=== PATIENT | male | born 1965 | race Caucasian/White ===

== ENCOUNTER 2016-04-04 04:47 | Emergency (ER) | payer MEDICARE, MEDICAID ==
[2016-04-04 04:56] VITALS: BP 167/93
[2016-04-04] MEDS ORDERED: Pseudoephedrine TAB* 60 MG PO ONE (05:27)
--- NOTE | 2016-04-04 06:29 | ED ---
Aung Richardson Billy scribed for Ryan Bruno MD on 04/04/16 at 0524 . Complex/Multi-Sys Presentation - HPI Summary HPI Summary: Patient is a 51 year-old male coming to [facility] presenting with 1 month of constant sinus discomfort. He describes burning sinus pain, throbbing headache, sore throat, tinnitus, ear ache and green nasal discharge. He has taken OTC decongestants with no improvement. He has also been treated with 2x different courses of antibiotics. He has a follow up appointment with his ENT in 5 days. - History Of Current Complaint Chief Complaint: EDUpperRespComplaint Time Seen by Provider: 04/04/16 05:16 Hx Obtained From: Patient Onset/Duration: Gradual Onset, Lasting Weeks, Still Present Timing: Constant Severity Currently: Moderate Severity Initially: Moderate Location: Pain At: Aggravating Factor(s): none Alleviating Factor(s): none Associated Signs And Symptoms: Positive: Other - sinus pain, throbbing headache , sore throat, tinnitus, ear ache and green nasal discharge - Allergies/Home Medications Allergies/Adverse Reactions: Allergies Allergy/AdvReac Type Severity Reaction Status Date / Time No Known Allergies Allergy Verified 04/03/16 09:27 PMH/Surg Hx/FS Hx/Imm Hx Endocrine/Hematology History: Denies: Hx Diabetes Cardiovascular History: Denies: Hx Hypertension, Hx Pacemaker/ICD History: Denies: Hx Renal Disease Sensory History: Denies: Hx Hearing Aid Psychiatric History: Denies: Hx Panic Disorder - Surgical History Surgery Procedure, Year, and Place: R THUMB FUSION,DEVIATED SEPTUM,SINUS [facility], SURGERY FOR TORN RETINA - Immunization History Date of Tetanus Vaccine: 09/02/12 Infectious Disease History: No Infectious Disease History: Denies: Traveled Outside the [place] in Last 30 Days - Family History Known Family History: Positive: Cardiac Disease, Diabetes - Social History Alcohol Use: pt unwilling/unable to speak Substance Use Type: Reports: None Smoking Status (MU): Unknown if Ever Smoked Review of Systems Positive: Sore Throat, Ear Ache, Nasal Discharge, Other - sinus pain, tinnitus Positive: Headache All Other Systems Reviewed And Are Negative: Yes Physical Exam Triage Information Reviewed: Yes Vital Signs On Initial Exam: Initial Vitals Temp Pulse Resp BP Pulse Ox 95.5 F 71 18 167/93 100 04/04/16 04:51 04/04/16 04:51 04/04/16 04:51 04/04/16 04:51 04/04/16 04:51 Vital Signs Reviewed: Yes Appearance: Positive: Well-Appearing, No Pain Distress Skin: Positive: Warm Head/Face: Positive: Normal Head/Face Inspection Eyes: Positive: EOMI, ALEXIA ENT: Positive: Pharynx normal, Nasal congestion, TMs normal Neck: Positive: Supple Respiratory/Lung Sounds: Positive: Clear to Auscultation, Breath Sounds Present Cardiovascular: Positive: RRR Abdomen Description: Positive: Nontender, Soft Musculoskeletal: Positive: Strength/ROM Intact Neurological: Positive: Sensory/Motor Intact, Alert, Oriented to Person Place, Time Diagnostics - Vital Signs Vital Signs Temp Pulse Resp BP Pulse Ox 04/04/16 04:51 95.5 F 71 18 167/93 100 - Laboratory Lab Results: Lab Results 04/04/16 Range/Units 06:11 Influenza A (Rapid) Negative (Negative) Influenza B (Rapid) Negative (Negative) Lab Statement: Any lab studies that have been ordered have been reviewed, and results considered in the medical decision making process. Re-Evaluation - Re-Evaluation First Eval Re-Evaluation Time: 06:00 - results d/w pt Change: Improved Complex Multi-Symp Course/Dx - Diagnoses Provider Diagnoses: Sinusitis Discharge - Discharge Plan Condition: Stable Disposition: HOME Prescriptions: Pseudoephedrine TAB* [Sudafed TAB*] 60 mg PO BID #10 tab Patient Education Materials: Sinusitis (ED) Referrals: Nam Canchola MD [Primary Care Provider] - Additional Instructions: FOLLOW UP WITH YOUR EAR, NOSE, AND THROAT SPECIALIST SCHEDULED. The documentation as recorded by the Aung alejandro Billy accurately reflects the service I personally performed and the decisions made by , Ryan Bruno MD.
== END 2016-04-04 06:38 | disposition home or self-care (01) ==
LOC: ED 04:47
DX: J32.0 Chronic maxillary sinusitis (principal); J02.9 Acute pharyngitis, unspecified; H92.09 Otalgia, unspecified ear
CPT/HCPCS: 70553; 87502; 99282; A9270-GY; A9579

== ENCOUNTER 2016-11-17 15:28 | Emergency (ER) | payer MEDICARE, MEDICAID ==
[2016-11-17] MEDS ORDERED: oxyCODONE/Acetamin 5/325 MG* TAB PO ONE (17:37)
[2016-11-17 18:43] VITALS: BP 182/88
== END 2016-11-17 18:47 | disposition left against medical advice (07) ==
LOC: ED 15:28
DX: R10.9 Unspecified abdominal pain (principal); Z53.21 Procedure and treatment not carried out due to patient leaving prior to being seen by health care provider
CPT/HCPCS: 93005; 99282; A9270-GY

== ENCOUNTER 2017-04-19 12:06 | Emergency (ER) | payer MEDICARE, MEDICAID ==
--- NOTE | 2017-04-19 13:24 | RAD ---
HISTORY: Cough COMPARISONS: December 06, 2013 VIEWS: 4: Frontal dual-energy and lateral views of the chest. FINDINGS: CARDIOMEDIASTINAL SILHOUETTE: The cardiomediastinal silhouette is normal. BRANDON: The brandon are normal. PLEURA: The costophrenic angles are sharp. No pleural abnormalities are noted. LUNG PARENCHYMA: There is hyperinflation with flattening of the diaphragm and expansion of the AP diameter of the chest. ABDOMEN: The upper abdomen is clear. There is no subphrenic gas. BONES AND SOFT TISSUES: Mild degenerative changes are noted OTHER: None. IMPRESSION: HYPERINFLATION. NO ACTIVE CARDIOPULMONARY DISEASE.
--- NOTE | 2017-04-19 13:49 | ED ---
Influenza-Like Illness - History of Current Complaint Chief Complaint: EDFluSymptoms Time Seen by Provider: 04/19/17 12:55 - Allergy/Home Medications Allergies/Adverse Reactions: Allergies Allergy/AdvReac Type Severity Reaction Status Date / Time No Known Allergies Allergy Verified 04/11/17 10:39 PMH/Surg Hx/FS Hx/Imm Hx Endocrine/Hematology History: Denies: Hx Diabetes Cardiovascular History: Denies: Hx Hypertension, Hx Pacemaker/ICD GI History: Reports: Hx Gastroesophageal Reflux Disease, Hx Hiatal Hernia, Other GI Disorders - NARROW ESOPHAGUS AND INFLAMMATION History: Reports: Other Problems/Disorders - ED Denies: Hx Renal Disease Musculoskeletal History: Reports: Hx Arthritis, Hx Back Problems, Hx Gout, Hx Orthopedic Injury Sensory History: Reports: Hx Contacts or Glasses, Hx Hearing Problem Denies: Hx Hearing Aid Opthamlomology History: Reports: Hx Contacts or Glasses Neurological History: Reports: Hx Headaches, Other Neuro Impairments/Disorders - 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 Psychiatric History: Denies: Hx Panic Disorder - Cancer History Hx Chemotherapy: No - Surgical History Surgery Procedure, Year, and Place: R THUMB FUSION,DEVIATED SEPTUM,SINUS C[facility], SURGERY FOR TORN RETINA (done with laser) Hx Anesthesia Reactions: Yes - waking up too soon from anethesia - Immunization History Date of Tetanus Vaccine: 09/02/12 Infectious Disease History: No Infectious Disease History: Denies: Traveled Outside the [place] in Last 30 Days - Family History Known Family History: Positive: Cardiac Disease, Diabetes - Social History Alcohol Use: Weekly Alcohol Amount: 6-9 beers per week Hx Substance Use: No Substance Use Type: Reports: None Hx Tobacco Use: Yes Smoking Status (MU): Former Smoker Physical Exam Vital Signs On Initial Exam: Initial Vitals Temp Pulse Resp BP Pulse Ox 97.7 F 82 16 168/100 98 04/19/17 12:17 04/19/17 12:17 04/19/17 12:17 04/19/17 12:17 04/19/17 12:17 Diagnostics - Vital Signs Vital Signs Temp Pulse Resp BP Pulse Ox 04/19/17 12:17 97.7 F 82 16 168/100 98 - Laboratory Lab Results: Lab Results 04/19/17 Range/Units 12:29 Influenza A (Rapid) Negative (Negative) Influenza B (Rapid) Negative (Negative) Lab Statement: Any lab studies that have been ordered have been reviewed, and results considered in the medical decision making process. - Radiology chest Xray Interpretation: No Acute Changes - HYPERINFLATION. NO ACTIVE CARDIOPULMONARY DISEASE. Radiology Interpretation Completed By: Radiologist Discharge - Discharge Plan Referrals: Nam Canchola MD [Primary Care Provider] -
[2017-04-19] MEDS ORDERED: Al Hydrox/Mg Hydrox/Simet LIQ* 30 ML UDC PO ONE (14:01)
[2017-04-19] MEDS ORDERED: Lidocaine 2% VISCOUS* 15 ML UDC PO ONE (14:01)
--- NOTE | 2017-04-19 14:04 | ED ---
Throat Pain/Nasal Congestion - HPI Summary HPI Summary: 52 male presents to ED with complaints of sinus and head congestion that has seemed to move into his chest that has been ongoing for the past 3 days and worsened. Also complaints of body aches. States he was visiting his brother who was ill with sinusitis. States he think he got it and states he gets chronic sinus infections. Has been taking dayquil/mucinex without relief. Admits to post nasal drip. States his throat has started to get sore from it and his acid reflux has also been acting up. Denies fever. Admits to headache and states when he bends over his head feels like it is going to explode. Has been having a lot of green mucus/drainage with coughing and nasal drainage. No other complaints. No PMHx. No chest pain or trouble breathing. Was concerned for flu/ pneumonia. Has increased amounts of stress. - History of Current Complaint Chief Complaint: EDFluSymptoms Time Seen by Provider: 04/19/17 12:55 Hx Obtained From: Patient Onset/Duration: Sudden Onset, Lasting Days, Still Present, Worse Since Severity: Moderate Associated Signs And Symptoms: Positive: Dysphagia, Sinus Discomfort, Nasal Discharge Cough: Productive - Epiglottits Risk Factors Epiglottis Risk Factors: Negative - Allergies/Home Medications Allergies/Adverse Reactions: Allergies Allergy/AdvReac Type Severity Reaction Status Date / Time No Known Allergies Allergy Verified 04/11/17 10:39 PMH/Surg Hx/FS Hx/Imm Hx Endocrine/Hematology History: Denies: Hx Diabetes Cardiovascular History: Denies: Hx Hypertension, Hx Pacemaker/ICD Respiratory History: Denies: Hx Asthma GI History: Reports: Hx Gastroesophageal Reflux Disease, Hx Hiatal Hernia, Other GI Disorders - NARROW ESOPHAGUS AND INFLAMMATION History: Reports: Other Problems/Disorders - ED Denies: Hx Renal Disease Musculoskeletal History: Reports: Hx Arthritis, Hx Back Problems, Hx Gout, Hx Orthopedic Injury Sensory History: Reports: Hx Contacts or Glasses, Hx Hearing Problem Denies: Hx Hearing Aid Opthamlomology History: Reports: Hx Contacts or Glasses Neurological History: Reports: Hx Headaches, Other Neuro Impairments/Disorders - 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 Psychiatric History: Denies: Hx Panic Disorder - Cancer History Hx Chemotherapy: No - Surgical History Surgery Procedure, Year, and Place: R THUMB FUSION,DEVIATED SEPTUM,SINUS CMC, SURGERY FOR TORN RETINA (done with laser) Hx Anesthesia Reactions: Yes - waking up too soon from anethesia - Immunization History Date of Tetanus Vaccine: 09/02/12 Immunizations Up to Date: Yes Infectious Disease History: No Infectious Disease History: Denies: Traveled Outside the [place] in Last 30 Days - Family History Known Family History: Positive: Cardiac Disease, Diabetes - Social History Alcohol Use: Weekly Alcohol Amount: 6-9 beers per week Hx Substance Use: No Substance Use Type: Reports: None Hx Tobacco Use: Yes Smoking Status (MU): Former Smoker Review of Systems Constitutional: Negative Positive: Sore Throat, Ear Ache, Nasal Discharge Cardiovascular: Negative Positive: Cough Positive: Nausea, Other - "acid reflux" Skin: Negative Positive: Headache All Other Systems Reviewed And Are Negative: Yes Physical Exam Triage Information Reviewed: Yes Vital Signs On Initial Exam: Initial Vitals Temp Pulse Resp BP Pulse Ox 97.7 F 82 16 168/100 98 04/19/17 12:17 04/19/17 12:17 04/19/17 12:17 04/19/17 12:17 04/19/17 12:17 Vital Signs Reviewed: Yes Appearance: Positive: No Pain Distress, Well-Nourished, Ill-Appearing - sounds congested and looks drained Skin: Positive: Warm, Skin Color Reflects Adequate Perfusion, Dry, Cold. Negative: Numb, Tender, Soft, Erythema @ Head/Face: Positive: Normal Head/Face Inspection Eyes: Positive: Conjunctiva Clear ENT: Positive: Hearing grossly normal, Pharyngeal erythema - post nasal drip noted, Nasal congestion, Nasal drainage, TMs normal - serous effusion BL, Sinus tenderness, Uvula midline. Negative: Tonsillar swelling, Tonsillar exudate Dental: Positive: Percussion Tenderness @ - maxillary/frontal. Negative: Cervical Lymphadenopathy Neck: Positive: Supple, Nontender Respiratory/Lung Sounds: Positive: Clear to Auscultation, Breath Sounds Present. Negative: Rales, Rhonchi, Wheezes Cardiovascular: Positive: Normal, RRR, Pulses are Symmetrical in both Upper and Lower Extremities. Negative: Murmur, Rub Abdomen Description: Positive: Nontender, Soft Musculoskeletal: Positive: Normal Neurological: Positive: Normal, Sensory/Motor Intact, Alert, Oriented to Person Place, Time Diagnostics - Vital Signs Vital Signs Temp Pulse Resp BP Pulse Ox 04/19/17 12:17 97.7 F 82 16 168/100 98 - Laboratory Lab Results: Lab Results 04/19/17 Range/Units 12:29 Influenza A (Rapid) Negative (Negative) Influenza B (Rapid) Negative (Negative) Lab Statement: Any lab studies that have been ordered have been reviewed, and results considered in the medical decision making process. EENT Course/Dx - Course Course Of Treatment: chest xray and influenza swab obtained and negative, obtained due to patient request. educated on viral versus bacterial infection. appears to be suffering from URI/sinusitis. symptomatic measures. given GI cocktail due to patient having GERD flare "burning in chest". aware of worsening signs symptoms. no other concerns. normal vitals, BP improved on recheck. increase fluids, rest. follow up. - Differential Diagnoses Differential Diagnoses: Sinusitis, URI/Bronchitis, Other - GERD - Diagnoses Provider Diagnoses: Sinusitis, GERD (gastroesophageal reflux disease) Discharge - Discharge Plan Condition: Stable Disposition: HOME Prescriptions: Amoxicillin/Clavulanate TAB* [Augmentin TAB 875*] 875 mg PO BID #19 tab Fluticasone NASAL SPRAY 50MCG* [Flonase NASAL SPRAY 50MCG*] 2 spray BOTH NARES DAILY #1 btl Patient Education Materials: Sinusitis (ED), Warm Compress or Soak (ED) Referrals: Nma Canchola MD [Primary Care Provider] - Additional Instructions: Take medication as prescribed. Take entire antibiotic until entire dose is finished even if symptoms improve. Hot showers, warm compresses, saline rinses, vicks/humidified air for symptoms. Be sure to take omeprazole as prescribed for the next week strictly due to symptoms. Increase fluid intake. Rest. Ibuprofen for headache/inflammation. Extra pillow at bedtime. Follow up with PCP. Any new or worsening symptoms please seek medical attention promptly.
[2017-04-19 14:33] VITALS: BP 150/88
== END 2017-04-19 14:27 | disposition home or self-care (01) ==
LOC: ED 12:06
DX: J32.9 Chronic sinusitis, unspecified (principal); K21.9 Gastro-esophageal reflux disease without esophagitis; Z87.891 Personal history of nicotine dependence
CPT/HCPCS: 71046; 87502; 99282; A9270-GY

== ENCOUNTER 2017-05-05 10:54 | Day surgery (SDC) | payer MEDICARE, MEDICAID ==
--- NOTE | 2017-02-13 04:09 | HP ---
PREOPERATIVE HISTORY AND PHYSICAL: DATE OF OFFICE VISIT: 02/11/17 DATE OF SURGERY: 02/24/17 ATTENDING SURGEON: Dr. Hebert Perez. * (DICTATED BY JANET ARMANDO) PROCEDURE: Left shoulder arthroscopy with rotator cuff repair, possible subpectoral biceps tenodesis. CHIEF COMPLAINT: Left shoulder pain. HISTORY OF PRESENT ILLNESS: Sean is a 51-year-old male who is here for followup for his left shoulder pain due to a partial thickness rotator cuff tendon rupture. He was last seen in September and was scheduled for surgery on , but cancelled due to some family issues. He has had significant pain. He is a chronic pain patient as well as having gout and fibromyalgia. He has had numbness and tingling in the past. He has tried injections which did helped for sometime, but wore off. He was unable to work. He has complaints of weakness and inability to lift. He cannot sleep. He takes the oxycodone 3 times a day with nabumetone. He has tried physical therapy and he has been taking anti-inflammatories [id number]. He has failed conservative treatments and wishes to proceed with surgery. PAST MEDICAL HISTORY: Significant for gout, arthritis, fibromyalgia, anxiety, cervicalgia, and myalgia. PAST SURGICAL HISTORY: Significant for thumb fusion and deviated septum, sinus surgery, esophagus surgery. CURRENT MEDICATIONS: 1. Omeprazole. 2. Benadryl. 3. Tramadol. 4. Prednisone. 5. Voltaren. 6. Allopurinol. 7. Colchicine. 8. Percocet. 9. Nabumetone. ALLERGIES: No known drug allergies. FAMILY HISTORY: Significant for diabetes, heart disease, high blood pressure, and stroke. SOCIAL HISTORY: He lives with his significant other. He is self-employed. He is a former smoker. He reports occasional alcohol consumption and he is left hand dominant. REVIEW OF SYSTEMS: A 14-point review of systems is reviewed with the patient. Significant for chronic back and neck pain, weakness, fatigue, seasonal allergies, depression, anxiety, and as well as above complaint. Otherwise, remainder of systems are negative and noncontributory. PHYSICAL EXAMINATION GENERAL: Well-developed, well-nourished 51-year-old male, in no acute distress. Alert and oriented x3. Appropriate mood and affect HEENT: Head is normocephalic, atraumatic. NECK: Supple with no palpable lymph nodes. LUNGS: Clear to auscultation bilaterally. No wheezes, rales, or rhonchi. CARDIAC: Regular rate and rhythm. S1, S2. No murmurs, rubs, or gallops. MUSCULOSKELETAL: Left upper extremity, exam of the left shoulder demonstrates skin intact. There is no erythema or warmth. He is tender laterally as well as along the bicipital groove. He is able to forward flex to about 130, abduct to about 90, passively to 130 degrees of abduction and externally rotates to about 45 and internally rotates to thoracolumbar spine. He has positive Nakul's test. 4+/5 strength with supraspinatus. He has good strength with infra and subscap with some pain. He does have a positive Speed's test, [place] and [place]. He has sensation to light touch distally and 2+ radial pulse. ASSESSMENT AND PLAN: He has a partial thickness tear of the left rotator cuff. Dr. Perez talked to him about surgery again. He would like to proceed with left shoulder arthroscopy with rotator cuff repair and possible subpectoral biceps tenodesis. Dr. Perez talked to him about the risks and benefits. Risks include but are not limited to bleeding, infection, damage to nerve, vessels, surrounding structures, the wound not healing, persistent pain, need for surgery, scarring, stiffness, risk of anesthesia, and failure of the repair. He will touch base with Pain Management about postoperative pain control. He will follow up with me in the office in 10 to 14 days postoperatively. JANET ARMANDO [id number]/[facility] #: [id number] LINDY
--- NOTE | 2017-04-30 22:12 | HP ---
PREOPERATIVE HISTORY AND PHYSICAL: DATE OF ADMISSION/SURGERY: 05/05/17 [facility] ATTENDING SURGEON: Dr. Hebert Perez.* (DICTATED BY JANET GAO) PROCEDURE: Left shoulder arthroscopic rotator cuff repair and subpectoral biceps tenodesis. CHIEF COMPLAINT: Left shoulder pain. HISTORY OF PRESENT ILLNESS: Sean is a 52-year-old male, who presents to the clinic for followup of his left shoulder pain due to a partial-thickness rotator cuff tear. He was last seen by Dr. Perez in January. He was scheduled to have surgery in February; however, had to cancel due to family issues. He is finally able to have surgery because his home situation has improved. He states that his shoulder still bothers him. He has continuing lateral and anterior aching pain that is made worse with movement. He reports intermittent popping. He has difficulty putting a jacket on. He reports intermittent numbness and tingling in his hands and neck pain. He states that he has an intermittent sharp shooting 7/10 pain in his shoulder. He is unable to sleep due to the pain. He has failed conservative treatments to include antiinflammatories and physical therapy and therefore has agreed to undergo a left shoulder arthroscopic rotator cuff repair and subpectoral biceps tenodesis with Dr. Perez on 05/05/17. PAST MEDICAL HISTORY: Gout, arthritis, fibromyalgia, anxiety, cervicalgia, and myalgia. PAST SURGICAL HISTORY: Thumb fusion, deviated septum, sinus surgery, and esophagus surgery. The patient denies prior complications with anesthesia. MEDICATIONS: 1. Oxycodone 10 mg 1 every 4 to 6 hours as needed for pain. 2. Omeprazole 20 mg 1 by mouth every day. 3. Benadryl 25 mg 1 by mouth as needed in the evening. 4. Methocarbamol 750 mg 1 tab every 6 hours as needed for pain. 5. Ibuprofen 800 mg one-half tab by mouth twice daily ALLERGIES: No known drug allergies. FAMILY HISTORY: Positive for diabetes, heart disease, hypertension, and stroke. SOCIAL HISTORY: He lives with his significant other. He is self-employed. He is a former smoker, quit 15 years ago. He reports occasional alcohol consumption. He is left-hand dominant. REVIEW OF SYSTEMS: A 14-point review of systems was reviewed with the patient, positive for current complaint, chronic back pain, depression, and anxiety; otherwise, negative. Denies chest pain, shortness of breath, fever, chills, history of bleeding disorder, history of DVT, or PE. He denies history of diabetes. PHYSICAL EXAMINATION GENERAL: A 52-year-old, well-developed, well-nourished male in no acute distress. Alert and oriented x3. Appropriate mood and affect. HEENT: Normocephalic and atraumatic. PERRLA. Throat clear. NECK: Supple. PULMONARY: Lungs are clear to auscultation bilaterally. No wheezing, rhonchi, or rales. CARDIO: Regular rate and rhythm. S1 and S2. No murmurs, gallops, or rubs. No edema. ABDOMEN: Positive bowel sounds, soft, and nontender. NEURO: Alert and oriented x3. Cranial nerves grossly intact. Sensation intact to light touch. EXTREMITIES: Left upper extremity, skin is intact. No warmth or erythema. Tenderness to palpation over the subacromial space at the bicipital groove. Forward flexion 90, passive to 130; abduction 90, passively past; external rotation 45; internal rotation to the lateral hip. +4/5 strength to rotator cuff testing. Positive impingement, Speed's, [place], and [place]. +2 radial pulses. Sensation intact to light touch distally. Right upper extremity : Skin is intact. No warmth or erythema. Nontender to palpation. Full pain- free range of motion. Neurovascularly intact. DIAGNOSTIC STUDIES: MRI in June revealed partial-thickness tear of the inferior surface of the distal supraspinatus tendon. IMPRESSION: Left shoulder rotator cuff tear. PLAN: The patient is scheduled to undergo a left shoulder arthroscopic rotator cuff repair, subpectoral biceps tenodesis with Dr. Perez on 05/05/17. Oxycodone will be used for postoperative pain management. He is a chronic pain patient and this is what the pain clinic recommended the last time he was scheduled to have surgery. We will cover him with oxycodone for 2 to 3 weeks postop and they will continue prescribing pain medications. He will follow up 10 to 14 days for postop followup and suture removal. JANET GAO [id number]/[facility] #: [id number] [facility] [place] DIVISIONFelicia
[~2017-05-05 10:54] MED LIST: Buffered Lidocaine 0.9% SYRIN* 5 ML/SYR SYRINGE INTRADERM ONE; Dexamethasone IV* 4 MG/ML 1 ML (4 MG) IV SLOW PU ONE; Dexamethasone IV* 4 MG/ML 1 ML (4 MG) ONE; Famotidine IV* 10 MG/ML 2 ML (20 mg) IV ONE; Famotidine IV* 10 MG/ML 2 ML (20 mg) ONE; ceFAZolin 2 GM PREMIX (*) 2 GM/50 ML BAG IVPB ONE
[2017-05-05] MEDS ORDERED: fentaNYL* 50 MCG/ML 2 ML VIAL (100 MCG VIAL) ONE ×2 (12:32→13:26)
[2017-05-05] MEDS ORDERED: ROPIVACAINE 5 MG/ML 30 ML BTL (0.5%) ONE (12:32)
[2017-05-05] MEDS ORDERED: Midazolam* 1 MG/ML 5 ML VIAL (5 MG) ONE (12:32)
[2017-05-05] MEDS ORDERED: Mivacurium Chloride* 20 MG/10 ML VIAL IV ONE (12:36)
[2017-05-05] MEDS ORDERED: Propofol* 10 MG/ML 20 ML BTL IV PUSH ONE (12:56)
[2017-05-05] MEDS ORDERED: Lidocaine 2% PF * 5 ML VIAL ONE (12:56)
[2017-05-05] MEDS ORDERED: Bupivacaine 0.25% SDV* 30 ML ONE (13:25)
[2017-05-05] MEDS ORDERED: Ketorolac INJ* 30 MG/ML 1 ML VIAL ONE (13:30)
[2017-05-05] MEDS ORDERED: EPHEDrine (Pressors)* 50 MG/ML VIAL ONE (13:38)
[2017-05-05] MEDS ORDERED: fentaNYL* 50 MCG/ML 2 ML VIAL (100 MCG VIAL) IV PRN (13:46)
[2017-05-05] MEDS ORDERED: oxyCODONE/Acetamin 5/325 MG* TAB PO PRN (13:46)
[2017-05-05] MEDS ORDERED: Naloxone* 0.4 MG/ML 1 ML VIAL IV PRN (13:46)
[2017-05-05] MEDS ORDERED: PROCHLORPERAZINE INJ 5 MG/ML 2 ML VIAL IV PRN (13:46)
[2017-05-05] MEDS ORDERED: Ondansetron INJ* 2 MG/ML VIAL ONE (13:48)
[2017-05-05 16:20] VITALS: BP 149/89
--- NOTE | 2017-05-06 15:20 | OP ---
CC: PCP OPERATIVE REPORT: DATE OF OPERATION: 05/05/17 DATE OF : 63 ATTENDING SURGEON: Hebert Perez MD X RAY DEVELOPING MACHINE OPERATOR: JANET Alvarez An assistant analyst was needed for the entirety of the case to help with positioning, retraction and was uti lized throughout all portions of the case. ANESTHESIA: General with interscalene block. ANESTHESIOLOGIST: Dr. Ramon. PRE-OP DIAGNOSIS: Left shoulder high grade partial thickness tear of the rotator cuff with bicipital tendonitis. POST-OP DIAGNOSIS: Left shoulder full thickness tear to supra and anterior portion of the infraspina tus, bicipital tendonitis. OPERATIVE PROCEDURE: 1. Left total shoulder arthroplasty with glenohumeral debridement including debridement of the subsc apularis. 2. Subacromial decompression and acromioplasty. 3. Rotator cuff repair. 4. Subpectoral biceps tenodesis. COMPLICATIONS: None. ESTIMATED BLOOD LOSS: Minimal. IMPLANTS USED: Two Mc[employer]osh and Nephew 4.75 Healicoils and one Multifix, one 2.8 mm Q- Fix anchor. INDICATIONS: Sean Ferrell is a 52-year-old gentleman who I have been following for more than a yea r for his left shoulder pain. He was diagnosed with partial thickness tear, but he was unable to see k treatment for a long time. He has noticed progression of his symptoms and has failed conservative management. Risks and benefits of the surgery were discussed at length and include but are not limit ed to bleeding, infection, damage to nerves, vessels, surrounding structures, wound nonhealing, persi stent pain, need for surgery, scarring, stiffness, incomplete relief of symptoms, risks of anesthesia as well as failure to repair and risks of DVT. DESCRIPTION OF PROCEDURE: The patient was greeted in the preoperative area by the attending surgeon. The correct extremity was marked, consent was confirmed. The patient then underwent interscalene n erve block by the anesthesiologist after which he was brought back to the operating suite where he wa s placed in supine position on the operating room table. He then underwent general anesthesia and en dotracheal intubation after which he was appropriately positioned in the right lateral decubitus. An axillary roll was placed. He was secured with a peg board. The left arm was draped unsterile with 10 pounds of traction. The left shoulder was then prepped and draped in usual sterile fashion beginn ing with chlorhexidine soap, scrub, and alcohol wipe and a final prep with ChloraPrep. After appropriate surgical pause indicating side, site, procedure, and administration of antibiotics, the posterolateral portal was made sharply with an 11 blade. Scope was introduced into the joint. Joint was examined. There was abundant synovitis and inflammation present. There was tearing of the anterior, posterior and superior labrum. There was a mild amount of glenohumeral arthritis with gra de 0 to 1 changes, but no significant unstable flaps. The inferior recess was intact. The undersurf marie of the rotator cuff had a full thickness tear of the supraspinatus that encompassed part of the a nterior portion of the infraspinatus. The subscap was intact, but had a small amount of partial frayi ng. The biceps was inflamed. The superior labrum was torn. The anterior portal was made in an outs juli-in fashion. Shaver was used to debride the anterior, posterior, and superior labrum. The biceps was then tenotomized using scissors. The undersurface of the subscap was visualized and the top por tion was partially frayed, this was debrided back. After the debridement was completed, attention wa s directed to the subacromial space. The scope was repositioned in the subacromial space. Lateral portal was made in an outside-in fasmao n. Shaver was used to debride the abundant bursa that was present. The undersurface of the acromion was skeletonized using electrocautery device. An acromioplasty was done using a 4-0 oval lavon to re move the anterolateral spur. The cuff was visualized and had full thickness tearing, a small U-shape d tear. The cuff tissue was then mobilized. The footprint was then skeletonized using electrocauter y device. The rasp and the arthroscopic lavon was then used to generally decorticate the bone. Once this was complete, the shaver was used to debride back the rotator cuff. Two 4.75 Healicoil anchors were placed with excellent purchase. The patient had very good quality bone. The sutures were then passed through the tendon in a horizontal mattress configuration. These were then tied down using ar throscopic knot tying technique. Sutures were then passed through a Multifix anchor, which was impac juan into place to allow for a row fixation. Final images were obtained and attention was directed to the biceps. The bed was airplaned to the left side. The anterior aspect of the shoulder was prepped using Chlora Prep. A 15 blade was used to make an incision along with the biceps tendon. The soft tissue was car efully dissected using Metzenbaum scissors. Once the fascia was identified, the remainder of the diss ection was done bluntly. The pec was translated superiorly. The biceps screw was identified and the biceps was withdrawn from the groove using a right angle clamp. Biceps tendon had abundant synovitis and tendinopathy and the groove was then prepared in usual fashion with electrocautery device, the r ed ball rasp and osteotome. The Q-Fix anchor drill guide was then placed and drilled unicortically. The Q-Fix was then deployed with excellent purchase. Sutures were passed through the biceps tendon, approximately 1 cm proximal to the musculotendinous junction. The excess stump was then excised and the suture was passed in a Jimmy Polo configuration and tied down. Once it was secured, the wounds were copiously irrigated with sterile saline. The anterior wound was closed in layers with 2-0 Vicr yl and 3-0 Monocryl. The portals were closed with 3-0 nylon. The anterior wound was injected with 20 cc of 0.25% Marcaine. Sterile dressings, a Cryo/Cuff and UltraSling were applied. He was awoken fr om anesthesia and transferred to the PACU in stable condition. POSTOPERATIVE PLAN: He will be nonweightbearing for 6 weeks. He will start therapy in 4 weeks. He will be discharged on pain medication as well as Flexeril, which was all discussed with the pain clin ic. He will also be discharged on antibiotics. DVT prophylaxis was considered, but deferred due to no previous personal or family history. I will see the patient back in approximately 14 days. [id number]/[facility] #: [id number]
== END 2017-05-05 17:00 | disposition home or self-care (01) ==
LOC: OREAST 10:54
PROVIDERS: ATTEND Orthopaedic Surgery
DX: M75.112 Incomplete rotator cuff tear or rupture of left shoulder, not specified as traumatic (principal); M75.22 Bicipital tendinitis, left shoulder; M10.9 Gout, unspecified; M79.7 Fibromyalgia; F41.9 Anxiety disorder, unspecified; Z79.899 Other long term (current) drug therapy
CPT/HCPCS: C1713; C1776; J0690; J1100; J1885; J2250; J2405; J2704; J2795; J3010

== ENCOUNTER 2017-08-04 11:23 | Day surgery (SDC) | payer MEDICARE, MEDICAID ==
[~2017-08-04 11:23] MED LIST changes: -Dexamethasone IV* 4 MG/ML 1 ML (4 MG) ONE; -Famotidine IV* 10 MG/ML 2 ML (20 mg) IV ONE; -Famotidine IV* 10 MG/ML 2 ML (20 mg) ONE; -ceFAZolin 2 GM PREMIX (*) 2 GM/50 ML BAG IVPB ONE
[2017-08-04] MEDS ORDERED: ceFAZolin 2 GM PREMIX (*) 2 GM/50 ML BAG IVPB ONE (11:32)
[2017-08-04] MEDS ORDERED: Dexamethasone IV* 4 MG/ML 1 ML (4 MG) ONE (11:33)
[2017-08-04] MEDS ORDERED: Midazolam* 1 MG/ML 5 ML VIAL (5 MG) ONE (11:42)
[2017-08-04] MEDS ORDERED: fentaNYL* 50 MCG/ML 2 ML VIAL (100 MCG VIAL) ONE (11:42)
[2017-08-04] MEDS ORDERED: ROPIVACAINE 5 MG/ML 30 ML BTL (0.5%) ONE (12:19)
[2017-08-04] MEDS ORDERED: Propofol* 10 MG/ML 20 ML BTL IV PUSH ONE (12:23)
[2017-08-04 15:46] VITALS: BP 165/97
--- NOTE | 2017-08-05 09:45 | OP ---
CC: PCP, Nam Cancohla MD * DATE OF OPERATION: 08/04/17 - [facility] DATE OF : 63. SURGEON: Hebert Perez MD. CHECK SERVICES CLERK: JANET Alvarez. An assistant media buyer was needed for the entirety of the case to help with positioning, retraction, and was utilized throughout all portions of the case. ANESTHESIOLOGIST: Dr. Mora. ANESTHESIA: General and interscalene block. PREOPERATIVE DIAGNOSIS: Left shoulder failed rotator cuff repair. POSTOPERATIVE DIAGNOSIS: Left shoulder failed rotator cuff repair. OPERATIVE PROCEDURE: 1. Left shoulder arthroscopy with revision decompression with revision rotator cuff repair. 2. Removal of foreign body deep sutures x2. IMPLANTS USED: One MultiFix and one 4.75 Healicoil. INDICATIONS: Sean Ferrell is a 52-year-old male, who had a previous left shoulder arthroscopic decompression, debridement, rotator cuff repair, subpectoral biceps tenodesis on 05/05/17. He was noncompliant. He did not wear the sling. He was noncompliant shortly after surgery and there were concerns for a retear. A MR arthrogram was done that confirmed that it was not fully healed with areas of full thickness retracted flaps. Although, the entirety of the repair was not torn, he did re-tear a portion of it. He was still having persistent shoulder pain. After the MR arthrogram, we discussed that he may need to revise this. Risks and benefits of the surgery were discussed at length and included, but are not limited to bleeding, infection, damage to nerves, vessels, surrounding structures, wound nonhealing, persistent pain, need for further surgery, scarring, stiffness, incomplete relief of symptoms, risks of anesthesia. DESCRIPTION OF PROCEDURE: The patient was greeted in the preoperative area by the attending surgeon. The correct extremity was marked and consent was confirmed and brought back to the operating suite, where he underwent interscalene nerve block by anesthesiologist after which he underwent general anesthesia and endotracheal intubation. He was then placed in the right lateral decubitus position with all bony prominences were padded. He was secured with a pegboard. The left arm was draped unsterilely with 10 pounds of traction. The left shoulder was then prepped and draped in the usual sterile fashion beginning with chlorhexidine soap, scrub, and alcohol wipe and a final prep with ChloraPrep. After appropriate surgical pause indicating side, site, procedure, and administration of antibiotics, the standard postero-lateral portal was made sharply with #11 blade. The scope was introduced into the joint, joint was examined. There was abundant erythema, hyperemia of the tissues. There was a previous biceps tenotomy. There were no large changes. He had mild glenohumeral changes with grade 1 and 2 changes. The subscap was intact. The undersurface of the supraspinatus had evidence of tearing. The sutures were pulled through and released without tension. The infraspinatus was intact. No intraarticular work needed to be done, therefore, the scope was then repositioned to the sub-acromion space. The lateral portal was made in an outside-in fashion. There was abundant synovitis and inflammation present. This was debrided back using the shaver. The electrocautery device was used to skeletonize the undersurface of the acromion. There was still a small residual anterolateral spur, which was debrided back using the bur. After which the attention was directed to the rotator cuff. The previous site of repair had evidence of trying to heal. The sutures were not readily visible with the probe was used to probe the tissue and it was soft and poor quality. At this point, the knife was used to recreate the tear. The shaver was used to debride back the rotator cuff. Sutures were then removed. This actually took approximately 15 minutes to remove the previously placed sutures. Once the suture was removed, the cuff was then carefully mobilized. The greater tuberosity was skeletonized using electrocautery and then the rasp used to gently decorticate and the bur used to decorticate the tissues. After this was completed the cuff was carefully mobilized. Through a separate stab incision, one 4.75 Healicoil was placed with excellent purchase. The bone quality was very good. The sutures were passed in a horizontal mattress configuration then tied down and then passed through the separate MultiFix anchor, which was placed for lateral fixation. This helped to restore the rotator cuff and compress it to the footprint. Final images were obtained. The shoulder was taken through range of motion and found to intact. The wounds were copiously irrigated with sterile saline. The portals were closed with 3-0 nylon interrupted fashion. Sterile dressings were applied as well as a new Cryo/Cuff pad and his previous UltraSling which had minimal evidence of wear. The patient was awoken from anesthesia and transferred to PACU in stable condition. POSTOPERATIVE PLAN: He will be nonweightbearing. He will be in the sling for 6 weeks. He will be discharged on antibiotics. He will be discharged on pain medications for 4 weeks and then he will continue his previous pain medications. I will see the patient back in 10 to 14 days. DVT prophylaxis was considered but deferred due to no personal or family history. [id number]/[facility] #: [id number] LINDY
== END 2017-08-04 15:50 | disposition home or self-care (01) ==
LOC: OREAST 11:23
PROVIDERS: ATTEND Orthopaedic Surgery
DX: M75.122 Complete rotator cuff tear or rupture of left shoulder, not specified as traumatic (principal); M75.22 Bicipital tendinitis, left shoulder; M79.7 Fibromyalgia; F41.9 Anxiety disorder, unspecified; Z87.891 Personal history of nicotine dependence
CPT/HCPCS: C1713; J0690; J1100; J2250; J2704; J2795; J3010

== ENCOUNTER → 2018-02-18 | Day surgery (SDC) | payer MEDICARE, MEDICAID ==
[~2018-02-18] MED LIST changes: +Acetaminophen IV 1GM/100ML * 100 ML ONE; -Buffered Lidocaine 0.9% SYRIN* 5 ML/SYR SYRINGE INTRADERM ONE; -Dexamethasone IV* 4 MG/ML 1 ML (4 MG) IV SLOW PU ONE; +Dexamethasone IV* 4 MG/ML 1 ML (4 MG) ONE; +DiMENhydriNATE IV* 50 MG/ML VIAL IV PUSH PRN; +EPINEPHRINE 1 MG/ML 1 ML VIAL ONE; +HYDROmorphone INJ1* 1 MG/ML SYRINGE IV PRN; +Ketorolac INJ* 30 MG/ML 1 ML VIAL ONE; +Lidocaine 2% PF * 5 ML VIAL ONE; +Metoclopramide IV* 5 MG/ML 2 ML VIAL ONE; +Midazolam* 1 MG/ML 2 ML VIAL (2 MG) ONE; +Naloxone* 0.4 MG/ML 1 ML VIAL IV PRN; +Ondansetron INJ* 2 MG/ML VIAL ONE; +Phenylephrine INJ* 10 MG/ML 1 ML VIAL (10 MG) ONE; +Propofol* 10 MG/ML 20 ML BTL ONE; +Rocuronium* 10 MG/ML VIAL ONE; +ceFAZolin 2 GM PREMIX in ORs 2 GM/50 ML BAG IVPB ONE; +fentaNYL* 50 MCG/ML 2 ML VIAL (100 MCG VIAL) ONE; +oxyCODONE TAB* 5 MG TAB PO PRN
[2018-02-18 13:29] VITALS: BP 132/83
--- NOTE | 2018-02-18 20:19 | OP ---
OPERATIVE REPORT: DATE OF OPERATION: 02/18/17 DATE OF : 63 SURGEON: Dr. Hebert Perez. TRUCK BENCH MECHANIC: JANET Alvarez. An rehab assistant was needed for the entirety of the case to help with positioning and retraction, and was utilized throughout all portions of the case. ANESTHESIOLOGIST: Dr. Eden. ANESTHESIA: General with interscalene block. PRE-OP DIAGNOSIS: Left shoulder partial re-tear of the supraspinatus with a new high-grade partial-t hickness tear of the infraspinatus. POST-OP DIAGNOSIS: Left shoulder partial re-tear of the supraspinatus with a new high-grade partial- thickness tear of the infraspinatus including some mild adhesive capsulitis. OPERATIVE PROCEDURE: Left shoulder arthroscopy with: 1. Extensive glenohumeral debridement including lysis of adhesions. 2. Revision subacromial decompression with acromioplasty. 3. Rotator cuff repair of the supraspinatus tendon in double row fashion. 4. Removal of foreign body x2. IMPLANTS USED: Two Healicoils, 2 Multifix. COMPLICATIONS: None. ESTIMATED BLOOD LOSS: Minimal. INDICATIONS: Sean Ferrell is a 52-year-old male who has had at least 2 rotator cuff repairs in the last year. The first one, he was noncompliant and re-tore it; second one, he fell. We tried conser vative management for about 6 months. He has elected to proceed with surgical treatment due to persi stent pain and lack of motion. The risks and benefits were discussed at length including, but not li mited to bleeding, infection, damage to nerves; vessels; surrounding structures, wound nonhealing, pe rsistent pain, need for further surgery, scarring, stiffness, incomplete relief of symptoms, and risk of anesthesia. DESCRIPTION OF PROCEDURE: The patient was greeted in the preoperative area by the attending surgeon. The correct extremity was marked and consent was confirmed. The patient underwent interscalene nerv e block by anesthesiologist, after which he was brought back to the operating suite. He was placed i n the supine position on the operating table and underwent general anesthesia and endotracheal intuba tion, after which he was placed in the right lateral decubitus position with an axillary roll. All b maria g prominences were padded and he was secured with a peg board. Left shoulder was draped unsterile with 10 pounds of traction. The left shoulder was then prepped and draped in the usual sterile fashi on beginning with chlorhexidine soap, scrub, and alcohol wipe and a final prep with ChloraPrep. After appropriate surgical pause indicating site, side, procedure, and administration of antibiotics, standard posterolateral portal was made sharply with an 11-blade. Scope was introduced into the solomon nt. There was abundant scar tissue that was present. The glenohumeral joint was examined. There we re grade 0 to 1 changes present. The anterior, posterior and superior labrum had mild fraying. This was debrided back. Gentle chondroplasty was done as well. There was thick scar tissue in the anteri or aspect about the interval and the electrocautery device was used to do a lysis of adhesions. The rotator cuff was examined and there was evidence of the sutures having pulled through and were no armida rodriguez on tension. The cable was obviously disrupted and there was a U-shaped high-grade partial-thickn ess tear. An anterior portal was made in an outside-in fashion. Shaver was used to debride back the labrum. Electrocautery device was used to release the dense scar tissue anteriorly. Inferior reces s was intact. Attention was directed to the subacromial space. With the scope in the subacromial space, a lateral portal was made in an outside-in fashion. Shaver was used to debride back the recurrent bursa. There was also thick tissue that was present there and this was released using electrocautery device. At this point, the cuff had appeared to have healed or scarred over on the bursal side, but obviously was torn on the undersurface. It was then gently p robed and easy to release. The acromion was then skeletonized using the electrocautery device. The 4-0 oval bur was then used to do a revision acromioplasty. The rotator cuff was examined. It was then released using 11-blade. The poor quality tissue was the n debrided back using the shaver. The sutures were identified and then removed as these were going t o be in the way of the repair. The cuff tissue was carefully mobilized. Once this was done and the g reater tuberosity was prepared, the rasp as well as the 4-0 oval bur were then used to gently decorti bereket the tissue to the greater tuberosity. After this was done, through 2 separate stab incisions, t wo 4.7 Healicoils were placed about the medial row, 1 anteriorly and [address] d with excellent purchase. Sutures were then passed through the tendon in a horizontal mattress confi guration. There were then tied down. Once these were tied down, 1 strand from each knot was then pas sed through a Multifix to be placed for an anterolateral row. This was then secured in a knotless fi xation. The remaining sutures were then passed through a second Multifix for a posterolateral row. Final images were obtained. The cuff was found to be restored and then compressed to the cuff. The w ounds were then copiously irrigated with sterile saline. Portals were closed with 3-0 nylon. Sterile dressings were applied. A cryo/Cuff as well as an UltraSling were applied. He was awoken from [facility] and transferred to PACU in stable condition. POSTOPERATIVE PLAN: He will be nonweightbearing. He will be in a sling for potentially 6 to 8 weeks . He will be discharged on pain medications and antibiotics. DVT prophylaxis was considered, but de ferred due to no previous personal and family history. I will see the patient back in 10 to 14 days. [id number]/[facility] #: [id number]
== END | disposition home or self-care (01) ==
LOC: OR 07:41
PROVIDERS: ATTEND Orthopaedic Surgery
DX: M75.122 Complete rotator cuff tear or rupture of left shoulder, not specified as traumatic (principal); M75.02 Adhesive capsulitis of left shoulder; Z87.891 Personal history of nicotine dependence; K21.9 Gastro-esophageal reflux disease without esophagitis; G89.18 Other acute postprocedural pain
CPT/HCPCS: C1713; J0690; J1100; J1885; J2250; J2405; J2704; J2765; J3010